=== PATIENT | male | born 1945 | race Caucasian/White ===

== ENCOUNTER → 2017-05-30 | Outpatient (CLI) | payer MEDICARE, BC ==
[~2017-05-30] MED LIST: ASPI81CH PO; ATOR40TA PO; Acetaminophen325 M1 PO; Bactrim Ds Tab1 EACH PO; CENTRUM SILVER1 EAC2 PO; CLOP75 PO; DEXA4 PO; ELIQUIS5 MG; GLIP10 PO; GLIP2.5ER PO; GLIP5 PO; HYDACE25S PR; INSDET100 SC; LOSA25 PO; METF500 PO; METO25 PO; METO50 PO; MIRALAX17 GM PO; MORP15ER PO; Novolog100 UNIT/2; OXYC5; OXYC5 PO; PANT40 PO; PRAV20 PO; PRED20 PO; SORINE PO; SOTO80 PO; SUCR1; TAMS.4ER PO; VOTRIENT200 MG PO; XARELTO20 MG PO; XGEVA120 MG/1.7 SC; Zofran Odt4 MG PO
[2017-05-30 10:50] LABS: Hematocrit 47.6 % (37.0-53.0); Hemoglobin 15.4 g/dL (13.5-17.5); Mean Corpuscular HGB 31.4 pg (26.0-34.0); Mean Corpuscular HGB Conc 32.4 g/dL (31.5-36.5); Mean Corpuscular Volume 97 fL (80-100); Mean Platelet Volume 10.2 fL (9.1-12.4); NRBC ABSOLUTE 0.03 K/mm3 (0.00-0.02); NRBC Auto 0.8 /100 WBC (0.0-0.2); Platelet Count 129 K/mm3 (150-400); RDW Coefficient Variation 19.1 % (11.7-14.2); RDW Standard Deviation 67.2 fL (35.1-46.3); White Blood Cell Count 3.89 K/mm3 (4.00-11.30)
[2017-05-30 11:11] LABS: Alanine Aminotransfer (ALT/SGP 45 U/L (12-78); Albumin, Blood 1.9 g/dL (3.4-5.0); Albumin/Globulin Ratio 0.4 (0.8-1.8); Alk Phos 89 U/L (50-136); Anion Gap 9 mmol/L (6-16); Aspartate Aminotrans (AST/SGOT 45 U/L (12-37); Bilirubin, Total 0.5 mg/dL (0.1-1.0); Blood Urea Nitrogen 24 mg/dL (8-24); Bun/Creatinine Ratio 23.3 (12.0-20.0); CO2, Blood 23 mmol/L (21-32); Calcium, Blood 8.1 mg/dL (8.5-10.1); Chloride, Blood 104 mmol/L (98-108); Creatinine, Blood 1.03 mg/dL (0.60-1.20); Globulin, Blood 4.3 g/dL (2.2-4.0); Glomerular Filtration Rate >60 (60-); Glucose, Blood 119 mg/dL (70-99); Potassium, Blood 4.3 mmol/L (3.5-5.5); Sodium, Blood 136 mmol/L (136-145); Total Protein, Blood 6.2 g/dL (6.4-8.2)
[2017-05-30 12:15] LABS: BAND PERCENT MAN 12 % (0-8); BASOPHILS PERCENT MAN 0 % (0-2); EOSINOPHILS ABSOLUTE MAN 0.07 K/mm3 (0.00-0.68); EOSINOPHILS PERCENT MAN 2 % (0-6); LYMPHOCYTES % ATYPICAL MANUAL 3 % (0-0); LYMPHOCYTES ABSOLUTE MAN 0.42 K/mm3 (0.84-5.20); LYMPHOCYTES PERCENT MAN 8 % (21-46); METAMYELOCYTE ABSOLUTE MAN 0.03 K/mm3 (0.00-0.00); METAMYELOCYTE PERCENT MAN 1 % (0-0); MONOCYTES ABSOLUTE MAN 0.31 K/mm3 (0.16-1.47); MONOCYTES PERCENT MAN 8 % (4-13); NEUTROPHILS ABSOLUTE MAN 3.03 K/mm3 (1.96-9.15); SEG NEUTROPHILS PERCENT MAN 66 % (41-73); TOTAL CELLS COUNTED 100
== END ==
LOC: LAB SHORT 10:38
PROVIDERS: Internal Medicine Hematology & Oncology
DX: C64.2 Malignant neoplasm of left kidney, except renal pelvis (principal)
CPT/HCPCS: 80053; 85025

== ENCOUNTER 2017-06-02 01:03 | Day surgery (SDC) | payer MEDICARE, BC ==
[~2017-06-02 01:03] MED LIST changes: -ASPI81CH PO; -ATOR40TA PO; -Acetaminophen325 M1 PO; -Bactrim Ds Tab1 EACH PO; -CENTRUM SILVER1 EAC2 PO; -CLOP75 PO; -DEXA4 PO; -ELIQUIS5 MG; -GLIP2.5ER PO; -GLIP5 PO; -HYDACE25S PR; -INSDET100 SC; -METF500 PO; -METO50 PO; -MIRALAX17 GM PO; -Novolog100 UNIT/2; -OXYC5 PO; -PANT40 PO; -PRED20 PO; -SORINE PO; -SUCR1; -VOTRIENT200 MG PO; -XARELTO20 MG PO; -XGEVA120 MG/1.7 SC; -Zofran Odt4 MG PO
[2017-06-02] MEDS ORDERED: DEXA4 PO (16:46)
[2017-06-02] MEDS ORDERED: XARELTO20 MG PO (16:46)
[2017-06-02] MEDS ORDERED: SORINE PO (16:47)
[2017-06-02] MEDS ORDERED: GLIP5 PO (16:47)
[2017-06-02] MEDS ORDERED: VOTRIENT200 MG PO (16:49)
[2017-06-03] MEDS ORDERED: Bactrim Ds Tab1 EACH PO (10:12)
[2017-06-03] MEDS ORDERED: METO50 PO (10:13)
[2017-06-03] MEDS ORDERED: SOTO80 PO (10:14)
[2017-06-03] MEDS ORDERED: Zofran Odt4 MG PO (12:45)
[2017-07-26] MEDS ORDERED: GLIP5 PO (10:18)
[2017-11-10] MEDS ORDERED: ASPI81CH PO (21:29)
[2017-11-10] MEDS ORDERED: ATOR40TA PO (21:29)
[2017-11-10] MEDS ORDERED: PRED20 PO (21:30)
[2017-11-10] MEDS ORDERED: OXYC5 (21:30)
[2017-11-10] MEDS ORDERED: CLOP75 PO (21:30)
[2017-11-10] MEDS ORDERED: SOTO80 PO (21:31)
== END 2017-06-02 17:55 | disposition home or self-care (01) ==
LOC: ATC 01:03
DX: C64.2 Malignant neoplasm of left kidney, except renal pelvis (principal); C79.51 Secondary malignant neoplasm of bone; C78.02 Secondary malignant neoplasm of left lung; R63.0 Anorexia; Z90.5 Acquired absence of kidney; I10 Essential (primary) hypertension; E11.9 Type 2 diabetes mellitus without complications; Z79.84 Long term (current) use of oral hypoglycemic drugs
CPT/HCPCS: 96360; 96361; J7030

== ENCOUNTER 2017-06-03 09:47 | Emergency (ER) | END 2017-06-03 13:46 | disposition home or self-care (01) ==

== ENCOUNTER 2017-06-04 | Day surgery (SDC) | END 2017-06-04 17:23 | disposition home or self-care (01) ==

== ENCOUNTER 2017-06-23 14:02 | Inpatient (IN) | payer MEDICARE, BC, OTHER ==
[~2017-06-23] VITALS: Ht 175.3 cm; Wt 123.3 kg
[~2017-06-23 14:02] MED LIST changes: +Bactrim Ds Tab1 EACH PO; +DEXA4 PO; +GLIP5 PO; +METO50 PO; +SORINE PO; +VOTRIENT200 MG PO; +XARELTO20 MG PO; +Zofran Odt4 MG PO
[2017-06-23] MEDS ORDERED: Acetaminophen325 M1 PO (14:45)
[2017-06-23] MEDS ORDERED: GLIP10 PO (14:46)
[2017-06-23] MEDS ORDERED: OXYC5 PO (14:47)
[2017-06-23] MEDS ORDERED: XGEVA120 MG/1.7 SC (14:49)
[2017-06-23] MEDS ORDERED: CENTRUM SILVER1 EAC2 PO (14:49)
[2017-06-23 14:59] LABS: IMMATURE RETIC FRACTION 32.6 % (2.3-16.0); RETIC HGB EQUIVALENT 35.6 pg (28.20-36.60); RETICULOCYTE COUNT PERCENT 3.05 % (0.50-2.50)
[2017-06-23 15:14] LABS: Percent Saturation 25.5 % (20.0-50.0)
[2017-06-23 15:32] LABS: Base Excess Venous -0.1 mmol/L; Bicarbonate Venous 23.7 mmol/L (24.0-30.0); PCO2 Venous 46.3 mmHg (38-42); PO2 Venous 40.4 mmHg (38-42); pH Blood Venous 7.35 (7.34-7.37)
[2017-06-23] MEDS ORDERED: MIRALAX17 GM PO (20:11)
[2017-06-23] MEDS ORDERED: HYDACE25S PR (20:11)
[2017-06-23] MEDS ORDERED: TAMS.4ER PO (20:28)
[2017-06-24 06:00] LABS: Hematocrit 30.2 % (37.0-53.0); Hemoglobin 9.7 g/dL (13.5-17.5); Mean Corpuscular HGB 31.9 pg (26.0-34.0); Mean Corpuscular HGB Conc 32.1 g/dL (31.5-36.5); Mean Corpuscular Volume 99 fL (80-100); Mean Platelet Volume 10.3 fL (9.1-12.4); NRBC ABSOLUTE 0.05 K/mm3 (0.00-0.02); NRBC Auto 1.8 /100 WBC (0.0-0.2); Platelet Count 146 K/mm3 (150-400); RDW Coefficient Variation 19.7 % (11.7-14.2); RDW Standard Deviation 70.7 fL (35.1-46.3); Red Blood Cell Count 3.04 M/mm3 (4.30-5.90); White Blood Cell Count 2.71 K/mm3 (4.00-11.30)
[2017-06-24 06:20] LABS: Alanine Aminotransfer (ALT/SGP 53 U/L (12-78); Albumin/Globulin Ratio 0.6 (0.8-1.8); Alk Phos 93 U/L (50-136); Anion Gap 10 mmol/L (6-16); Aspartate Aminotrans (AST/SGOT 17 U/L (12-37); Bilirubin, Total 0.6 mg/dL (0.1-1.0); Blood Urea Nitrogen 31 mg/dL (8-24); Bun/Creatinine Ratio 30.7 (12.0-20.0); CO2, Blood 24 mmol/L (21-32); Calcium, Blood 8.6 mg/dL (8.5-10.1); Chloride, Blood 103 mmol/L (98-108); Creatinine, Blood 1.01 mg/dL (0.60-1.20); Globulin, Blood 3.6 g/dL (2.2-4.0); Glomerular Filtration Rate >60 (60-); Glucose, Blood 334 mg/dL (70-99); Potassium, Blood 4.2 mmol/L (3.5-5.5); Sodium, Blood 137 mmol/L (136-145); Total Protein, Blood 5.6 g/dL (6.4-8.2)
[2017-06-24 06:28] LABS: BASOPHILS PERCENT MAN 0 % (0-2); EOSINOPHILS PERCENT MAN 0 % (0-6); LYMPHOCYTES ABSOLUTE MAN 0.16 K/mm3 (0.84-5.20); LYMPHOCYTES PERCENT MAN 6 % (21-46); MONOCYTES ABSOLUTE MAN 0.16 K/mm3 (0.16-1.47); MONOCYTES PERCENT MAN 6 % (4-13); PROMYELOCYTE ABSOLUTE MAN 0.02 K/mm3 (0.00-0.00); PROMYELOCYTE PERCENT MAN 1 % (0-0); SEG NEUTROPHILS PERCENT MAN 74 % (41-73); TOTAL CELLS COUNTED 100
[2017-06-24 06:29] LABS: BAND PERCENT MAN 13 % (0-8); NEUTROPHILS ABSOLUTE MAN 2.35 K/mm3 (1.96-9.15)
[2017-06-25 05:59] LABS: Hematocrit 30.6 % (37.0-53.0); Hemoglobin 9.8 g/dL (13.5-17.5); Mean Corpuscular HGB 31.9 pg (26.0-34.0); Mean Corpuscular Volume 100 fL (80-100); Mean Platelet Volume 10.3 fL (9.1-12.4); NRBC ABSOLUTE 0.08 K/mm3 (0.00-0.02); NRBC Auto 2.8 /100 WBC (0.0-0.2); Platelet Count 146 K/mm3 (150-400); RDW Coefficient Variation 20.1 % (11.7-14.2); RDW Standard Deviation 70.4 fL (35.1-46.3); Red Blood Cell Count 3.07 M/mm3 (4.30-5.90); White Blood Cell Count 2.88 K/mm3 (4.00-11.30)
[2017-06-25 06:26] LABS: Anion Gap 6 mmol/L (6-16); Blood Urea Nitrogen 24 mg/dL (8-24); CO2, Blood 25 mmol/L (21-32); Calcium, Blood 8.3 mg/dL (8.5-10.1); Chloride, Blood 106 mmol/L (98-108); Glomerular Filtration Rate >60 (60-); Glucose, Blood 213 mg/dL (70-99); Potassium, Blood 4.3 mmol/L (3.5-5.5); Sodium, Blood 137 mmol/L (136-145)
[2017-06-27 05:24] LABS: BASOPHILS ABSOLUTE AUTO 0.01 K/mm3 (0.00-0.23); BASOPHILS PERCENT AUTO 0 % (0-2); Hematocrit 30.3 % (37.0-53.0); Hemoglobin 9.5 g/dL (13.5-17.5); LYMPHOCYTES PERCENT AUTO 22 % (21-46); MONOCYTES ABSOLUTE AUTO 0.19 K/mm3 (0.16-1.47); MONOCYTES PERCENT AUTO 7 % (4-13); Mean Corpuscular HGB 31.5 pg (26.0-34.0); Mean Corpuscular HGB Conc 31.4 g/dL (31.5-36.5); Mean Corpuscular Volume 100 fL (80-100); Mean Platelet Volume 10.3 fL (9.1-12.4); NRBC ABSOLUTE 0.02 K/mm3 (0.00-0.02); NRBC Auto 0.7 /100 WBC (0.0-0.2); Platelet Count 156 K/mm3 (150-400); RDW Coefficient Variation 19.8 % (11.7-14.2); RDW Standard Deviation 72.4 fL (35.1-46.3); Red Blood Cell Count 3.02 M/mm3 (4.30-5.90); White Blood Cell Count 2.77 K/mm3 (4.00-11.30)
[2017-06-27 05:26] LABS: EOSINOPHILS ABSOLUTE AUTO 0.02 K/mm3 (0.00-0.68); EOSINOPHILS PERCENT AUTO 1 % (0-6); IMMATURE GRAN ABSOLUTE AUTO 0.02 K/mm3 (0.00-0.10); IMMATURE GRAN PERCENT AUTO 1 % (0-1); NEUTROPHILS ABSOLUTE AUTO 1.93 K/mm3 (1.96-9.15); NEUTROPHILS PERCENT AUTO 70 % (41-73)
[2017-06-27 06:19] LABS: Alanine Aminotransfer (ALT/SGP 42 U/L (12-78); Albumin, Blood 1.7 g/dL (3.4-5.0); Albumin/Globulin Ratio 0.5 (0.8-1.8); Alk Phos 94 U/L (50-136); Anion Gap 10 mmol/L (6-16); Aspartate Aminotrans (AST/SGOT 18 U/L (12-37); Bilirubin, Total 0.6 mg/dL (0.1-1.0); Blood Urea Nitrogen 17 mg/dL (8-24); Bun/Creatinine Ratio 17.1 (12.0-20.0); CO2, Blood 22 mmol/L (21-32); Calcium, Blood 7.8 mg/dL (8.5-10.1); Chloride, Blood 107 mmol/L (98-108); Creatinine, Blood 0.99 mg/dL (0.60-1.20); Globulin, Blood 3.4 g/dL (2.2-4.0); Glomerular Filtration Rate >60 (60-); Glucose, Blood 139 mg/dL (70-99); Potassium, Blood 3.4 mmol/L (3.5-5.5); Sodium, Blood 139 mmol/L (136-145); Total Protein, Blood 5.1 g/dL (6.4-8.2)
[2017-06-28 06:13] LABS: Anion Gap 10 mmol/L (6-16); Blood Urea Nitrogen 16 mg/dL (8-24); CO2, Blood 20 mmol/L (21-32); Chloride, Blood 106 mmol/L (98-108); Glomerular Filtration Rate >60 (60-); Glucose, Blood 236 mg/dL (70-99); Potassium, Blood 3.7 mmol/L (3.5-5.5); Sodium, Blood 136 mmol/L (136-145)
[2017-06-28] MEDS ORDERED: INSDET100 SC (12:56)
[2017-06-28] MEDS ORDERED: METF500 PO (12:57)
[2017-06-28] MEDS ORDERED: Novolog100 UNIT/2 (12:58)
[2017-06-28] MEDS ORDERED: PANT40 PO (13:00)
[2017-06-28] MEDS ORDERED: SUCR1 (13:00)
[2017-07-26] MEDS ORDERED: GLIP5 PO (10:18)
[2017-11-10] MEDS ORDERED: ASPI81CH PO (21:29)
[2017-11-10] MEDS ORDERED: ATOR40TA PO (21:29)
[2017-11-10] MEDS ORDERED: OXYC5 (21:30)
[2017-11-10] MEDS ORDERED: PRED20 PO (21:30)
[2017-11-10] MEDS ORDERED: CLOP75 PO (21:30)
[2017-11-10] MEDS ORDERED: SOTO80 PO (21:31)
== END 2017-06-28 13:10 | DRG 381 ==
LOC: ER 14:02 → MEDS 17:45
PROVIDERS: Internal Medicine; Internal Medicine Gastroenterology; Physician Assistant; Student in an Organized Health Care Education/Training Program
PROC: 3E0234Z Introduction of Serum, Toxoid and Vaccine into Muscle, Percutaneous Approach (ICD-10-PCS; 2017-06-23)
PROC: 5A09357 Assistance with Respiratory Ventilation, Less than 24 Consecutive Hours, Continuous Positive Airway Pressure (ICD-10-PCS; 2017-06-23)
PROC: 0DB68ZX Excision of Stomach, Via Natural or Artificial Opening Endoscopic, Diagnostic (ICD-10-PCS; principal; 2017-06-24 10:15)
DX: K22.11 Ulcer of esophagus with bleeding (principal); C64.9 Malignant neoplasm of unspecified kidney, except renal pelvis; C78.00 Secondary malignant neoplasm of unspecified lung; C79.51 Secondary malignant neoplasm of bone; E11.22 Type 2 diabetes mellitus with diabetic chronic kidney disease; D70.9 Neutropenia, unspecified; I48.0 Paroxysmal atrial fibrillation; Z68.41 Body mass index [BMI] 40.0-44.9, adult; D64.9 Anemia, unspecified; N18.3 Chronic kidney disease, stage 3 (moderate); E66.9 Obesity, unspecified; Z23 Encounter for immunization; G47.33 Obstructive sleep apnea (adult) (pediatric); I12.9 Hypertensive chronic kidney disease with stage 1 through stage 4 chronic kidney disease, or unspecified chronic kidney disease; E78.5 Hyperlipidemia, unspecified; Z79.01 Long term (current) use of anticoagulants; Z86.711 Personal history of pulmonary embolism; Z91.19 Patient's noncompliance with other medical treatment and regimen; I95.1 Orthostatic hypotension; E87.6 Hypokalemia
CPT/HCPCS: 36415; 73030; 80048; 80053; 82533; 82728; 82803; 82947; 83540; 83550; 83690; 84439; 84443; 85025; 85027; 85045; 86850; 86900; 86901; 88305; 88342; 93005; 93010; 94660; 94762; 96365; 96366; 97110; 97163; 97166; 97530; 97535; 99285; C9113; G8978; G8979; G8987; G8988; J1815; J2001; J3480; J7030; J7050; J7120

== ENCOUNTER 2017-08-24 09:36 | Day surgery (SDC) | payer MEDICARE, BC ==
[~2017-08-24 09:36] MED LIST changes: +Acetaminophen325 M1 PO; +CENTRUM SILVER1 EAC2 PO; +HYDACE25S PR; +INSDET100 SC; +METF500 PO; +MIRALAX17 GM PO; +Novolog100 UNIT/2; +OXYC5 PO; +PANT40 PO; +SUCR1; +XGEVA120 MG/1.7 SC
== END 2017-08-24 23:12 | disposition home or self-care (01) ==
LOC: ORSCMMR 09:36 → ORD 11:00 → ORSCMMR 23:12
PROVIDERS: Surgery
PROC: 02HV33Z Insertion of Infusion Device into Superior Vena Cava, Percutaneous Approach (ICD-10-PCS; principal; 2017-08-24 11:00)
PROC: B5181ZA Fluoroscopy of Superior Vena Cava using Low Osmolar Contrast, Guidance (ICD-10-PCS; principal; 2017-08-24 11:00)
DX: C64.2 Malignant neoplasm of left kidney, except renal pelvis (principal); C79.51 Secondary malignant neoplasm of bone; C78.02 Secondary malignant neoplasm of left lung; I48.0 Paroxysmal atrial fibrillation; E11.9 Type 2 diabetes mellitus without complications; Z79.4 Long term (current) use of insulin; Z79.899 Other long term (current) drug therapy; K21.9 Gastro-esophageal reflux disease without esophagitis; E66.01 Morbid (severe) obesity due to excess calories; Z68.41 Body mass index [BMI] 40.0-44.9, adult
CPT/HCPCS: 77001; 82947; C1788; J0690; J1642; J2250; J3010; J7120

== ENCOUNTER 2017-11-24 01:39 | Emergency (ER) | payer MEDICARE, BC ==
[~2017-11-24] VITALS: Ht 182.9 cm; Wt 113.4 kg
[~2017-11-24 01:39] MED LIST changes: +ASPI81CH PO; +ATOR40TA PO; +CLOP75 PO; +PRED20 PO
[2017-11-24 02:23] LABS: BASOPHILS PERCENT AUTO 0 % (0-2); EOSINOPHILS ABSOLUTE AUTO 0.04 K/mm3 (0.00-0.68); EOSINOPHILS PERCENT AUTO 1 % (0-6); Hemoglobin 14.4 g/dL (13.5-17.5); IMMATURE GRAN ABSOLUTE AUTO 0.06 K/mm3 (0.00-0.10); IMMATURE GRAN PERCENT AUTO 1 % (0-1); LYMPHOCYTES ABSOLUTE AUTO 0.54 K/mm3 (0.84-5.20); LYMPHOCYTES PERCENT AUTO 10 % (21-46); MONOCYTES ABSOLUTE AUTO 0.41 K/mm3 (0.16-1.47); MONOCYTES PERCENT AUTO 8 % (4-13); Mean Corpuscular HGB 29.4 pg (26.0-34.0); Mean Corpuscular Volume 92 fL (80-100); Mean Platelet Volume 9.5 fL (9.1-12.4); NEUTROPHILS PERCENT AUTO 81 % (41-73); NRBC ABSOLUTE 0.03 K/mm3 (0.00-0.02); NRBC Auto 0.6 /100 WBC (0.0-0.2); Platelet Count 202 K/mm3 (150-400); RDW Coefficient Variation 16.7 % (11.7-14.2); RDW Standard Deviation 54.5 fL (35.1-46.3); Red Blood Cell Count 4.89 M/mm3 (4.30-5.90); White Blood Cell Count 5.45 K/mm3 (4.00-11.30)
[2017-11-24 02:36] LABS: International Normalized Ratio 1.03; Prothrombin Time Results 10.6 Sec (9.7-11.5)
[2017-11-24 02:40] LABS: Alanine Aminotransfer (ALT/SGP 31 U/L (12-78); Albumin, Blood 2.9 g/dL (3.4-5.0); Albumin/Globulin Ratio 0.7 (0.8-1.8); Alk Phos 60 U/L (50-136); Anion Gap 10 mmol/L (6-16); Aspartate Aminotrans (AST/SGOT 26 U/L (12-37); Bilirubin, Total 0.4 mg/dL (0.1-1.0); Blood Urea Nitrogen 33 mg/dL (8-24); Bun/Creatinine Ratio 28.4 (12.0-20.0); CO2, Blood 21 mmol/L (21-32); Calcium, Blood 8.6 mg/dL (8.5-10.1); Chloride, Blood 102 mmol/L (98-108); Creatinine, Blood 1.16 mg/dL (0.60-1.20); Globulin, Blood 3.9 g/dL (2.2-4.0); Glomerular Filtration Rate >60 (60-); Glucose, Blood 179 mg/dL (70-99); Sodium, Blood 133 mmol/L (136-145); Total Protein, Blood 6.8 g/dL (6.4-8.2)
[2017-11-24 03:28] LABS: Source, Urine Clean Catch
[2017-11-24 03:30] LABS: Appearance, Urine Clear (Clear); Bilirubin, Urine Neg (Neg); Blood, Urine 1+ (Neg); Color, Urine Pale Yellow (P-Yellow); Glucose Qualitative, Urine Neg (Neg); Ketones, Urine Neg (Neg); Leukocyte Esterase, Urine Neg (Neg); Nitrite, Urine Neg (Neg); Protein, Urine 3+ (Neg); Urobilinogen, Urine NORM (Normal)
[2017-11-24 03:40] LABS: Bacteria Rare /hpf; Red Blood Cells, Urine Rare /hpf (0-2); Squamous Epithelial Cells Not Seen /hpf (Few); White Blood Cells, Urine 0-2 /hpf (0-5)
[2017-11-24] MEDS ORDERED: GLIP2.5ER PO (05:36)
[2017-11-24] MEDS ORDERED: ELIQUIS5 MG (05:38)
== END 2017-11-24 07:01 | disposition short-term general hospital (02) ==
LOC: ER 01:39
PROVIDERS: Emergency Medicine
DX: I63.9 Cerebral infarction, unspecified (principal); I48.91 Unspecified atrial fibrillation; R73.9 Hyperglycemia, unspecified; Z79.899 Other long term (current) drug therapy; Z79.52 Long term (current) use of systemic steroids; Z79.84 Long term (current) use of oral hypoglycemic drugs
CPT/HCPCS: 70450; 70496; 70498; 71045; 80053; 81001; 84484; 85025; 85610; 93005; 93010; 96361; 96374; 99285-25; J7030; Q3014; Q9967